=== PATIENT | female | born 1950 | race African-American/Black ===

== ENCOUNTER 2022-08-10 04:22 | Day surgery (SDC) | payer OTHER ==
[2022-08-08 11:40] VITALS: BMI 36.9
[2022-08-10 07:23] VITALS: RESP 20
[2022-08-10] MEDS ORDERED: LIDOCAINE HCL 1%, 10 MG/ML (10ML VIAL) MDV ONE (09:33)
[2022-08-10] MEDS ORDERED: BUPIVACAINE HCL/PF 0.5% (5MG/ML) 10 ML VIAL ONE (09:34)
[2022-08-10] MEDS ORDERED: DEXAMETHASONE SOD PHOSPHATE 4 MG/1 ML VIAL ONE (09:34)
[2022-08-10] MEDS ORDERED: PROPOFOL 40 ML ONE (10:28)
[2022-08-10] MEDS ORDERED: MIDAZOLAM HCL 2 MG/2 ML SINGLE DOSE VIAL ONE (10:28)
[2022-08-10] MEDS ORDERED: ceFAZolin SODIUM 1 GM VIAL ONE (10:28)
[2022-08-10] MEDS ORDERED: ceFAZolin SODIUM 1 GM VIAL IVPB ONE (10:35)
[2022-08-10] MEDS ORDERED: ONDANSETRON 4 MG/2 ML VIAL ONE (11:11)
[2022-08-10] MEDS ORDERED: TRIAMCINOLONE ACET 40MG/1ML VIAL ONE (11:12)
[2022-08-10] MEDS ORDERED: LIDOCAINE HCL 1%, 10 MG/ML (20ML VIAL) INF ONE (11:20)
[2022-08-10] MEDS ORDERED: TRIAMCINOLONE ACETONIDE 40 MG/ML 10 ML VIAL IJ ONE (11:21)
[2022-08-10] MEDS ORDERED: BUPIVACAINE HCL/PF 0.5% (5 MG/ML) 30 ML VIAL IJ ONE (11:21)
[2022-08-10 14:46] VITALS: BP 137/78; PULSE 54; TEMP 97.7
== END 2022-08-10 14:47 | disposition home or self-care (01) ==
LOC: JASU-SURG 04:22
PROVIDERS: ATTEND Podiatrist Foot Surgery
PROC: 0SRP0JZ Replacement of Right Toe Phalangeal Joint with Synthetic Substitute, Open Approach (ICD-10-PCS; principal; 2022-08-10 09:45)
DX: M20.41 Other hammer toe(s) (acquired), right foot (principal)
CPT/HCPCS: 73630-TC-RT-FY; 88305-TC; 88311-TC